=== PATIENT | male | born 1955 | race Caucasian/White ===

== ENCOUNTER 2020-01-09 12:27 | Inpatient (IN) | payer MEDICARE ==
[~2020-01-09] VITALS: Ht 175.3 cm; Wt 96.6 kg
[2020-01-09] MEDS ORDERED: HYDROCODONE/APAP 10MG-325MG TAB PO ONE (13:00)
[2020-01-09 18:14] VITALS: BP 173/105
[2020-01-09] MEDS ORDERED: CLONIDINE HCL 0.1 MG TAB PO PRN (18:15)
[2020-01-09 18:16] VITALS: BP 173/105
[2020-01-09 18:28] VITALS: BP 173/105
[2020-01-09] MEDS ORDERED: MECLIZINE HCL 12.5 MG TAB PO PRN (18:30)
[2020-01-09] MEDS ORDERED: ONDANSETRON HCL INJ 2MG/ML 2ML 2 MG/ML VIAL IV PRN (18:30)
[2020-01-09] MEDS ORDERED: ACETAMINOPHEN/CODEINE 300MG - 30MG TAB PO PRN (18:30)
[2020-01-09] MEDS ORDERED: ACETAMINOPHEN 325 MG TAB PO PRN (18:30)
[2020-01-09 19:41] LABS: BASOPHILS % 0.5 % (0.0-1.0); EOSINOPHILS # (AUTO) 0.3 (0.0-0.4); EOSINOPHILS % 3.6 % (0.0-6.0); HEMATOCRIT 42.6 % (38.2-49.6); HEMOGLOBIN 14.4 g/dL (14.0-18.0); LYMPHOCYTES # (AUTO) 1.7 (1.0-3.2); LYMPHOCYTES % 23.1 % (18.0-39.1); MEAN CORPUSCULAR HEMOGLOBIN 29.4 pg (28-32); MEAN CORPUSCULAR HGB CONC 33.8 g/dL (31-35); MEAN CORPUSCULAR VOLUME 87.1 fL (81-99); MONOCYTES # (AUTO) 0.5 (0.2-0.8); MONOCYTES % 6.2 % (4.4-11.3); NEUTROPHILS # (AUTO) 4.9 (2.1-6.9); NEUTROPHILS % 65.9 % (38.7-80.0); PLATELET COUNT 170 x10e3/uL (140-360); RED BLOOD COUNT 4.89 x10e6/uL (4.3-5.7); RED CELL DISTRIBUTION WIDTH 13.2 % (11.7-14.4)
[2020-01-09 19:59] LABS: ANION GAP 14.4 mmol/L (8-16); BLOOD UREA NITROGEN 13 mg/dL (7-26); BUN/CREATININE RATIO 12 (6-25); CALCIUM 8.5 mg/dL (8.4-10.2); CARBON DIOXIDE 26 mmol/L (22-29); CHLORIDE 103 mmol/L (98-107); EST GLOMERULAR FILTRATION RATE > 60 ML/MIN (60-); GLUCOSE 77 mg/dL (74-118); POTASSIUM 3.4 mmol/L (3.5-5.1); SODIUM 140 mmol/L (136-145)
[2020-01-09 20:00] VITALS: BP 159/93
[2020-01-09] MEDS ORDERED: POTASSIUM CHLORIDE 20 MEQ TAB CR PO STA (20:43)
[2020-01-09] MEDS: MORPHINE SULFATE INJ 4 MG/ML INJ 1ML IV PRN (22:00)
[2020-01-09] MEDS: LOSARTAN POTASSIUM 25 MG TAB PO SCH (22:42)
[2020-01-09 23:14] VITALS: BP 159/93
[2020-01-10] VITALS (8 sets, daily range): BP systolic 129–179; BP diastolic 80–95
[2020-01-10] MEDS: MORPHINE SULFATE INJ 4 MG/ML INJ 1ML IV PRN ×2 (05:00→09:47)
[2020-01-10 05:25] LABS: INR 0.98; PROTHROMBIN TIME 13.5 seconds (11.9-14.5)
[2020-01-10 05:26] LABS: PARTIAL THROMBOPLASTIN TIME 26.5 seconds (23.8-35.5)
[2020-01-10] MEDS: LOSARTAN POTASSIUM 25 MG TAB PO SCH ×2 (08:19→17:02)
[2020-01-10] MEDS: CARVEDILOL 3.125 MG TAB PO SCH (20:30)
[2020-01-11] VITALS (8 sets, daily range): BP systolic 136–173; BP diastolic 81–93
[2020-01-11] MEDS: MORPHINE SULFATE INJ 4 MG/ML INJ 1ML IV PRN ×2 (01:45→06:35)
[2020-01-11] MEDS ORDERED: LIDOCAINE HCL (LTA) 4 ML SOLN ONE (07:47)
[2020-01-11] MEDS ORDERED: IBUPROFEN 800MG/ 200ML 200 ML IV ONE (07:47)
[2020-01-11] MEDS: CARVEDILOL 3.125 MG TAB PO SCH ×2 (08:58→16:27)
[2020-01-11] MEDS: LOSARTAN POTASSIUM 25 MG TAB PO SCH ×2 (08:59→16:27)
[2020-01-11] MEDS ORDERED: LIDOCAINE 1% W/EPINEPHRINE 20 ML VIAL ONE (09:31)
[2020-01-11] MEDS ORDERED: VANCOMYCIN HCL 1 GM VIAL ONE (09:32)
[2020-01-11] MEDS ORDERED: THROMBIN FOR SOLN 5,000 UNIT VIAL ONE (09:32)
[2020-01-11] MEDS ORDERED: MAGNESIUM/ALUMINUM/SIMETHICONE 30 ML UDC PO PRN (11:15)
[2020-01-11] MEDS ORDERED: CARISOPRODOL 350 MG TAB PO PRN (11:15)
[2020-01-11] MEDS ORDERED: MORPHINE SULFATE 5 MG/ML VIAL IM PRN (11:15)
[2020-01-11] MEDS ORDERED: PROMETHAZINE HCL (IM) 25 MG/ML VIAL IM PRN (11:15)
[2020-01-11] MEDS ORDERED: ACETAMINOPHEN 325 MG TAB PO PRN (11:15)
[2020-01-11] MEDS ORDERED: FENTANYL CITRATE/PF 100MCG/2 ML INJ ONE ×2 (11:19→13:25)
[2020-01-11] MEDS ORDERED: HYDROMORPHONE 1MG/1ML INJ ONE (11:35)
[2020-01-11] MEDS ORDERED: MIDAZOLAM HCL 2 MG/2 ML VIAL ONE ×2 (11:38→13:25)
[2020-01-11] MEDS ORDERED: LIDOCAINE HCL 2% LOCAL INJ 5 ML SDV VIAL INJ ONE (12:05)
[2020-01-11] MEDS ORDERED: PROPOFOL IV EMULSION 10 MG/ML 20 ML VIAL ONE (12:05)
[2020-01-11] MEDS ORDERED: SEVOFLURANE INHAL SOLN 250 ML PEN BTL ONE (12:05)
[2020-01-11] MEDS ORDERED: ROCURONIUM BROMIDE 10 MG/ML 5ML VIAL IV ONE (12:05)
[2020-01-11] MEDS ORDERED: EPHEDRINE SULFATE INJ 50 MG/ML VIAL ONE (12:05)
[2020-01-11] MEDS ORDERED: GLYCOPYRROLATE INJ 0.2 MG/ML VIAL ONE (12:05)
[2020-01-11] MEDS ORDERED: LIDOCAINE HCL 2% JELLY 5 ML TUBE ONE (12:05)
[2020-01-11] MEDS ORDERED: DEXAMETHASONE SOD PHOS INJ 4 MG/ML VIAL ONE (12:05)
[2020-01-11] MEDS ORDERED: ONDANSETRON HCL INJ 2MG/ML 2ML 2 MG/ML VIAL ONE (12:05)
[2020-01-11] MEDS ORDERED: NEOSTIGMINE 1 MG/ML 10ML VIAL ONE (12:05)
[2020-01-11] MEDS: LACTATED RINGER'S 1,000 ML IV SCH ×2 (13:35→19:35)
[2020-01-11] MEDS ORDERED: LORAZEPAM INJ 2 MG/ML VIAL IV PRN (14:00)
[2020-01-11] MEDS: HYDROMORPHONE 2MG/ML 2 MG/ML ML IV PRN ×2 (14:08→19:54)
[2020-01-11] MEDS: ONDANSETRON HCL INJ 2MG/ML 2ML 2 MG/ML VIAL IV PRN ×2 (14:08→19:54)
[2020-01-11] MEDS ORDERED: LOSARTAN POTAS100 MG PO (14:17)
[2020-01-11] MEDS ORDERED: VENLAFAXINE HCL75 MG PO (14:17)
[2020-01-11] MEDS ORDERED: FINASTERIDE5 MG PO (14:18)
[2020-01-11] MEDS ORDERED: LAMOTRIGINE100 MG PO (14:18)
[2020-01-11] MEDS ORDERED: PRILOSEC OTC20 MG PO (14:19)
[2020-01-11] MEDS: CEFAZOLIN SOD 1 GM/NS 50ML 50 ML IV SCH (16:27)
[2020-01-11] MEDS: LAMOTRIGINE 100 MG TAB PO SCH (16:27)
[2020-01-11] MEDS: DEXAMETHASONE SOD PHOS INJ 4 MG/ML VIAL IV SCH (16:27)
[2020-01-11] MEDS: VENLAFAXINE HCL 75 MG TAB PO SCH (16:27)
[2020-01-11] MEDS: PANTOPRAZOLE SOD 40 MG TABEC PO SCH (16:27)
[2020-01-11] MEDS ORDERED: NON-FORMULARY MEDICATION (Omeprazole Magnesium (Prilosec Otc) 20 MG) PO SCH (17:00)
[2020-01-11] MEDS ORDERED: LOSARTAN POTASSIUM 100 MG TAB PO SCH (17:00)
[2020-01-11] MEDS ORDERED: ZOLPIDEM TARTRATE 5 MG TAB PO PRN (21:00)
[2020-01-11] MEDS ORDERED: QUETIAPINE FUMARATE 100 MG TAB PO SCH (23:37)
[2020-01-12 00:58] VITALS: BP 163/88
[2020-01-12] MEDS: CEFAZOLIN SOD 1 GM/NS 50ML 50 ML IV SCH ×2 (01:00→14:11)
[2020-01-12 04:30] VITALS: BP 147/67
[2020-01-12] MEDS: LACTATED RINGER'S 1,000 ML IV SCH (07:05)
[2020-01-12 08:27] VITALS: BP 114/77
[2020-01-12] MEDS ORDERED: FINASTERIDE 5 MG TAB PO SCH (09:00)
[2020-01-12] MEDS: OXYCODONE/ACETAMINOPHEN 5-325 1 EACH TABLET PO PRN ×2 (09:32→14:28)
[2020-01-12] MEDS: PANTOPRAZOLE SOD 40 MG TABEC PO SCH (09:38)
[2020-01-12] MEDS: VENLAFAXINE HCL 75 MG TAB PO SCH (09:38)
[2020-01-12] MEDS: LOSARTAN POTASSIUM 25 MG TAB PO SCH (09:39)
[2020-01-12] MEDS: LAMOTRIGINE 100 MG TAB PO SCH (09:43)
[2020-01-12 09:50] VITALS: BP 114/77
[2020-01-12 12:30] VITALS: BP 124/75
[2020-01-12] MEDS: DEXAMETHASONE SOD PHOS INJ 4 MG/ML VIAL IV SCH (14:11)
[2020-01-12] MEDS ORDERED: NORCO 7.5-3251 EACH PO (14:15)
== END 2020-01-12 15:10 | disposition home health service (06) | DRG 520 ==
LOC: ER 13:16 → ERHOLD 14:42 → MED/SURG 17:55 → OBSVTOIN 01-10 15:00
PROVIDERS: ADMIT Internal Medicine; ATTEND Internal Medicine
PROC: 0SB20ZZ Excision of Lumbar Vertebral Disc, Open Approach (ICD-10-PCS; 2020-01-11)
PROC: 01NB0ZZ Release Lumbar Nerve, Open Approach (ICD-10-PCS; 2020-01-11)
PROC: 0SB20ZZ Excision of Lumbar Vertebral Disc, Open Approach (ICD-10-PCS; 2020-01-11)
PROC: 00NY0ZZ Release Lumbar Spinal Cord, Open Approach (ICD-10-PCS; principal; 2020-01-11 11:00)
DX: M48.062 Spinal stenosis, lumbar region with neurogenic claudication (principal); M48.07 Spinal stenosis, lumbosacral region; M48.08 Spinal stenosis, sacral and sacrococcygeal region; E87.6 Hypokalemia; I10 Essential (primary) hypertension; Z11.59 Encounter for screening for other viral diseases; F20.9 Schizophrenia, unspecified; Z74.09 Other reduced mobility; F32.9 Major depressive disorder, single episode, unspecified
CPT/HCPCS: 36415; 70450; 72020; 72128; 72131; 72148; 72192; 80048; 82948; 83735; 85025; 85610; 85730; 86850; 86900; 88304; 93005; 97139; 99284; G0378; J0690; J1100; J1170; J2001; J2060; J2250; J2270; J2405; J2550; J2710; J3010; J3370; J7121; U0002